=== PATIENT | female | born 1990 | race Caucasian/White ===

== ENCOUNTER 2021-11-14 12:32 | Outpatient (CLI) | payer BC, SELFPAY ==
--- NOTE | ~2021-11-14 | MMUS_ITS ---
EXAMINATION: MM diagnostic shun BI w raeann, US breast BI complete HISTORY: Bilateral breast pain TECHNIQUE: Additional 3-D tomosynthesis images of were performed and synthetic 2-D images were genera nicole. CAD analysis was submitted and interpreted. High resolution complete bilateral breast ultrasound including all 4 quadrants and subareolar areas was performed. COMPARISON: None BREAST PARENCHYMAL COMPOSITION: The breasts are extremely dense, which lowers the sensitivity of mamm ography. FINDINGS: MAMMOGRAPHIC FINDINGS: No suspicious mass or architectural distortion, malignant calcification, skin thickening or retractio n is detected. ULTRASOUND: No suspicious mass or shadowing of either breast is detected. A benign appearing lymph node is noted in the left axilla, measuring 6 x 11 mm dimension. IMPRESSION: 1. No mammographic evidence of malignancy 2. Routine mammographic screening beginning at age 40 is recommended BI-RADS Category 1: Negative Reviewed, dictated and finalized at location A. IMPRESSION: 1. No mammographic evidence of malignancy 2. Routine mammographic screening beginning at age 40 is recommended BI-RADS Category 1: Negative
== END 2021-11-14 12:33 | disposition home or self-care (01) ==
LOC: ANHIMG 12:41
DX: N64.4 Mastodynia (principal)
CPT/HCPCS: 76641; 77062; 77066; G0279